=== PATIENT | female | born 1945 | race Caucasian/White ===

== ENCOUNTER 2018-01-12 13:45 | Outpatient (RCR) | payer MEDICARE, BC, SELFPAY ==
--- NOTE | 2018-01-03 11:52 | PT.OTN ---
Current Diagnoses Benign paroxysmal vertigo, bilateral (01/03/18) Pain in left shoulder (01/03/18) Stiffness of unspecified joint, not elsewhere classified (01/03/18) Stiffness of left shoulder, not elsewhere classified (01/03/18) Cervicalgia (01/03/18) Transition note: On January 02, 2018 our therapy services consisting of Speech, Occupational, and Physical Therapy transitioned from the [employer] electronic documentation system to a new [employer] electronic documentation system.?? All documentation prior to January 02 can be found under [employer] saved data. From January 02 forward all medical record documentation will be in [employer] 6.1.
--- NOTE | 2018-01-03 15:29 | PT.OTN ---
Current Diagnoses Benign paroxysmal vertigo, bilateral (01/03/18) Pain in left shoulder (01/03/18) Stiffness of unspecified joint, not elsewhere classified (01/03/18) Stiffness of left shoulder, not elsewhere classified (01/03/18) Cervicalgia (01/03/18) Physical Therapy Treatment Note PT-OP-C Subjective Start: 01/03/18 15:13 Freq: Status: Active Protocol: Activity Type Activity Date Activity User E-Sign Co-Sign Detail Recorded Client Recorded Date Recorded By Document 01/03/18 15:15 [facility] [id number] 01/03/18 15:29 [facility] 01/03/18 15:15 OP-PT Subjective [Patient Comments] -Patient Comments My shoulder is being problematic today, but it has been good for the last two days. -Patient Reported Progress Improving OP-PT Pain Assessment [Location] Bilateral Posterior Neck -Intensity 6 -Scale Used Numeric (1 - 10 ) -Frequency Occasional Left Shoulder -Intensity 6 -Scale Used Numeric (1 - 10 ) -Frequency Occasional PT-OP-Q Treatments Start: 01/03/18 15:13 Freq: Status: Active Protocol: Activity Type Activity Date Activity User E-Sign Co-Sign Detail Recorded Client Recorded Date Recorded By Document 01/03/18 15:15 [employer] [id number] 01/03/18 15:29 [facility] 01/03/18 15:15 Manual Therapy Treatment [Soft Tissue Mobilization] 2 -Body Location Suboccipitals -Mobilization Type Myofascial Release Strumming Sustained Pressure -Intensity/Depth Superficial -Body Position Supine 1 -Body Location Upper Trap -Mobilization Type Myofascial Release Strain/ Counterstrain Strumming Sustained Pressure -Intensity/Depth Moderate -Body Position Supine [Joint Mobilizations] 1 -Joint Glenohumeral -Direction Inferior -Grade III -Body Position Supine [Manual Traction] Cervical -Body Position Supine PT-OP-R Modalities Start: 01/03/18 15:13 Freq: Status: Active Protocol: Activity Type Activity Date Activity User E-Sign Co-Sign Detail Recorded Client Recorded Date Recorded By Document 01/03/18 15:15 [employer] [id number] 01/03/18 15:29 [facility] 01/03/18 15:15 Spinal Traction [Traction Treatment] Cervical -Method Mechanical Static -Patient Position Hook-lying -Force Applied (newtons) 20 -Duration of Treatment (15-30 minutes 10 L ) -Heating Pad Applied No -Traction Treatment Comment Pt reports traction improves pain for 1-2 days following treatment PT-OP-T Assessment and Plan Start: 01/03/18 15:14 Freq: Status: Active Protocol: Activity Type Activity Date Activity User E-Sign Co-Sign Detail Recorded Client Recorded Date Recorded By Document 01/03/18 15:15 [facility] [id number] 01/03/18 15:29 [facility] 01/03/18 15:15 Physical Therapy Assessment [Rehab Potential] -Rehabilitation Potential Good [Impairments] -Impairments Pain Posture ROM Soft Tissue Mobility Strength [Progress Towards Goals] -Progress Towards Goals Progressing Toward Goals Slow Progress - Other -Progress Comments Pt going through the stressful situation of selling her house and moving to [place] over the next month, resulting in increased tone secondary to stress [Assessment Summary] -Assessment Pt does well following her PT appointments for ~2 days, however pain then returns without regular treatment session. Plan to work toward strengthening pt's cervical musculature and paraspinals in order to improve posture and cervical stability long- term. Physical Therapy Plan [Frequency and Duration] -Frequency of Treatment 2x/Week -Plan of Care Start Date 11/22/17 -Plan of Care End Date 01/30/18 [Therapeutic Interventions] -Therapeutic Interventions Home Exercise Program Joint Mobilizations Manual Therapy Self-Care/Home Management Soft Tissue Mobilization Therapeutic Exercises -Modalities Cold Pack/Ice Massage Electric Stimulation Hot Packs Traction- Mechanical [Next Visit Focus/Plan] -Next Visit Plan Addition of cervical strengthening and continued manual STM to decrease muscle tone
--- NOTE | 2018-01-09 15:51 | PT.OTN ---
Current Diagnoses Benign paroxysmal vertigo, bilateral (01/09/18) Pain in left shoulder (01/09/18) Stiffness of unspecified joint, not elsewhere classified (01/09/18) Stiffness of left shoulder, not elsewhere classified (01/09/18) Cervicalgia (01/09/18) Physical Therapy Treatment Note PT-OP-C Subjective Start: 01/03/18 15:13 Freq: Status: Active Protocol: Activity Type Activity Date Activity User E-Sign Co-Sign Detail Recorded Client Recorded Date Recorded By Document 01/09/18 14:30 [facility] [id number] 01/09/18 15:51 [facility] 01/09/18 14:30 OP-PT Subjective [Patient Comments] -Patient Comments Pt reports her stress levels with her packing and planning her move and trying to sell her house are not helping her shoulder and neck pain. -Patient Reported Progress Same PT-OP-Q Treatments Start: 01/03/18 15:13 Freq: Status: Active Protocol: Activity Type Activity Date Activity User E-Sign Co-Sign Detail Recorded Client Recorded Date Recorded By Document 01/09/18 14:30 [facility] [id number] 01/09/18 15:51 [facility] 01/09/18 14:30 Manual Therapy Treatment [Soft Tissue Mobilization] 2 -Body Location Suboccipitals -Mobilization Type Myofascial Release Strumming Sustained Pressure -Intensity/Depth Superficial -Body Position Supine 1 -Body Location Upper Trap -Mobilization Type Myofascial Release Strain/ Counterstrain Strumming Sustained Pressure -Intensity/Depth Moderate -Body Position Supine [Joint Mobilizations] 1 -Joint Glenohumeral -Direction Inferior -Grade III -Body Position Supine [Manual Traction] Cervical -Body Position Supine -Reps/Duration 8 minutes PT-OP-R Modalities Start: 01/03/18 15:13 Freq: Status: Active Protocol: Activity Type Activity Date Activity User E-Sign Co-Sign Detail Recorded Client Recorded Date Recorded By Document 01/09/18 14:30 [facility] [id number] 01/09/18 15:51 [facility] 01/09/18 14:30 Spinal Traction [Traction Treatment] Cervical -Method Mechanical Static -Patient Position Hooklying -Force Applied (newtons) 20 -Duration of Treatment (15-30 minutes 10 L ) -Heating Pad Applied No PT-OP-T Assessment and Plan Start: 01/03/18 15:14 Freq: Status: Active Protocol: Activity Type Activity Date Activity User E-Sign Co-Sign Detail Recorded Client Recorded Date Recorded By Document 01/09/18 14:30 [facility] [id number] 01/09/18 15:51 [facility] 01/09/18 14:30 Physical Therapy Assessment [Rehab Potential] -Rehabilitation Potential Good [Impairments] -Impairments Pain Posture ROM Soft Tissue Mobility Strength [Other Concerns] -Barriers to Rehabilitation [place] of [place] by the end of the month, which will likely result in a premature end to her therapy. [Progress Towards Goals] -Progress Towards Goals Slow Progress due to Activity Tolerance [Assessment Summary] -Assessment Pt doing a little better today, but her increased stress level due to her move continues to limit her progress. Physical Therapy Plan [Frequency and Duration] -Frequency of Treatment 2x/Week -Plan of Care Start Date 11/22/17 -Plan of Care End Date 01/30/18 [Therapeutic Interventions] -Therapeutic Interventions Home Exercise Program Joint Mobilizations Manual Therapy Self-Care/Home Management Soft Tissue Mobilization Therapeutic Exercises -Modalities Cold Pack/Ice Massage Electric Stimulation Hot Packs Traction- Mechanical [Next Visit Focus/Plan] -Next Visit Plan Cervical strengthening and continued manual STM to decrease muscle tone, Cervical traction
--- NOTE | 2018-01-12 14:28 | PT.OTN ---
Current Diagnoses Benign paroxysmal vertigo, bilateral (01/12/18) Pain in left shoulder (01/12/18) Stiffness of unspecified joint, not elsewhere classified (01/12/18) Stiffness of left shoulder, not elsewhere classified (01/12/18) Cervicalgia (01/12/18) Physical Therapy Treatment Note PT-OP-C Subjective Start: 01/03/18 15:13 Freq: Status: Active Protocol: Document 01/12/18 13:45 DCW (Rec: 01/12/18 13:59 DCW [id number]) OP-PT Subjective Patient Comments Patient Comments Pt reports her arm is pretty sore and swollen today. Admits she was doing a lot of standing and packing at her house this weekend. Patient Reported Progress Same OP-PT Pain Assessment Location Left Shoulder Intensity 8 Scale Used Numeric (1 - 10) Frequency Frequent PT-OP-Q Treatments Start: 01/03/18 15:13 Freq: Status: Active Protocol: Document 01/12/18 13:45 DCW (Rec: 01/12/18 13:59 DCW [id number]) Manual Therapy Treatment Soft Tissue Mobilization 2 Body Location Suboccipitals Mobilization Type Myofascial Release Strumming Sustained Pressure Intensity/Depth Superficial Body Position Supine 1 Body Location Upper Trap Mobilization Type Myofascial Release Strain/Counterstrain Strumming Sustained Pressure Intensity/Depth Moderate Body Position Supine Joint Mobilizations 1 Joint Glenohumeral Direction Inferior Grade III Body Position Supine Manual Traction Cervical Body Position Supine Reps/Duration 8 minutes PT-OP-R Modalities Start: 01/03/18 15:13 Freq: Status: Active Protocol: Document 01/12/18 13:45 DCW (Rec: 01/12/18 13:59 DCW [id number]) Spinal Traction Traction Treatment Cervical Method Mechanical Static Patient Position Hooklying Force Applied (newtons) 20 Duration of Treatment (Minutes) 10 Heating Pad Applied No PT-OP-T Assessment and Plan Start: 01/03/18 15:14 Freq: Status: Active Protocol: Document 01/12/18 13:45 DCW (Rec: 01/12/18 13:59 DCW [id number]) Physical Therapy Assessment Rehab Potential Rehabilitation Potential Good Impairments Impairments Pain Posture ROM Soft Tissue Mobility Strength Other Concerns Barriers to Rehabilitation Pt moving out of [place] by the end of the month, which will likely result in a premature end to her therapy. Progress Towards Goals Progress Towards Goals Slow Progress due to Activity Tolerance Assessment Summary Assessment Pt's complaints of left arm pain and swelling were lessened following her therapy session today Physical Therapy Plan Frequency and Duration Frequency of Treatment 2x/Week Plan of Care Start Date 11/22/17 Plan of Care End Date 01/30/18 Therapeutic Interventions Therapeutic Interventions Home Exercise Program Joint Mobilizations Manual Therapy Self-Care/Home Management Soft Tissue Mobilization Therapeutic Exercises Modalities Cold Pack/Ice Massage Electric Stimulation Hot Packs Traction- Mechanical Next Visit Focus/Plan Next Visit Plan Pt scheduled for one final appointment prior to her move, Will focus on HEP, flexibility, and pain control
--- NOTE | 2018-02-23 10:20 | PT.OPDS ---
Current Diagnoses Benign paroxysmal vertigo, bilateral (01/12/18) Pain in left shoulder (01/12/18) Stiffness of unspecified joint, not elsewhere classified (01/12/18) Stiffness of left shoulder, not elsewhere classified (01/12/18) Cervicalgia (01/12/18) Provider Visit Care Team Role Provider Type González Braden MD Attending Provider Physician Family Provider Primary Care Provider Specialty: Family Practice Address: [address] [place] [address], [facility] Email: [email or web address] Discharge Summary PT-OP-T Assessment and Plan Start: 01/03/18 15:14 Freq: Status: Active Protocol: Document 02/23/18 10:18 DCW (Rec: 02/23/18 10:20 DCW [id number]) Physical Therapy Plan Discharge Physical Therapy Discharge Reasons No Longer Attending PT Discharge Comments Pt moved out of state
== END 2018-04-09 16:23 ==
LOC: PHYS 13:45
PROVIDERS: Family Provider Family Medicine; PCP Family Medicine; Visit Provider Family Medicine
DX: M25.512 Pain in left shoulder (principal); M25.612 Stiffness of left shoulder, not elsewhere classified; M25.60 Stiffness of unspecified joint, not elsewhere classified; M54.2 Cervicalgia; H81.13 Benign paroxysmal vertigo, bilateral
CPT/HCPCS: 97012; 97140